=== PATIENT | female | born 1980 | race Caucasian/White ===

== ENCOUNTER → 2018-12-10 | Outpatient (REF) | payer BC, MEDICARE ==
[~2018-12-10] MED LIST: ACCUFLORA PO; ATIVAN0.5 MG PO; BACLOFEN10 MG PO; CLARITIN10 MG PO; COMBIVENT INH; DILAUDID2 MG PO; DULCOLAX10 MG RE; DURAGESIC75 MCG/H1 TOP; FENTANYL50 MCG/HR TOP; KEFLEX500 M1 PO; KEFLEX500 MG PO; LACTULOSE; LEVAQUIN500 MG PO; MUCINEX600 MG PO; NEURONTIN600 MG PO; NOVOLOG; NYSTATIN TOP; OXYCODONE HCL30 MG PO; PROTONIX40 MG PO; RESTORIL15 MG PO; SEASONALE PO; SENOKOT S1 TAB PO; SERTRALINE50 MG PO; XANAX0.25 MG PO; ZOFRAN ODT4 MG PO; [UNRECOGNIZED DRUG - CODE] PO; [UNRECOGNIZED DRUG - OTHER] PO; [UNRECOGNIZED DRUG - OTHER] SC
[2018-12-10 15:23] LABS: URINE BILIRUBIN - DIPSTICK NEGATIVE (NEGATIVE); URINE BLOOD DIPSTICK NEGATIVE (NEGATIVE); URINE COLOR YELLOW; URINE GLUCOSE - DIPSTICK NEGATIVE (NEGATIVE); URINE KETONE NEGATIVE (NEGATIVE); URINE LEUK ESTERASE NEGATIVE (Negative); URINE NITRITE - DIPSTICK NEGATIVE (Negative); URINE PH 5.5 (4.5-8.0); URINE PROTEIN - DIPSTICK NEGATIVE (NEG-TRACE); URINE UROBILINOGEN - DIPSTICK 0.2 E.U./dL (0.2)
[2018-12-10 15:25] LABS: URINE CLARITY CLEAR
== END | disposition home or self-care (01) | DRG 696 ==
LOC: LABSPEC 14:20
PROVIDERS: ATTEND Nurse Practitioner
DX: R31.9 Hematuria, unspecified (principal); R31.0 Gross hematuria; N30.20 Other chronic cystitis without hematuria

== ENCOUNTER 2019-03-26 19:52 | Emergency (ER) | payer BC, MEDICARE, MEDICAID ==
[~2019-03-26] VITALS: Ht 162.6 cm; Wt 82.0 kg
[2019-03-26 20:51] LABS: URINE BILIRUBIN - DIPSTICK NEGATIVE (NEGATIVE); URINE BLOOD DIPSTICK NEGATIVE (NEGATIVE); URINE COLOR YELLOW; URINE GLUCOSE - DIPSTICK NEGATIVE (NEGATIVE); URINE KETONE 15 mg/dL (NEGATIVE); URINE LEUK ESTERASE TRACE (NEGATIVE); URINE NITRITE - DIPSTICK NEGATIVE (Negative); URINE PH 5.5 (4.5-8.0); URINE PROTEIN - DIPSTICK NEGATIVE (NEG-TRACE); URINE UROBILINOGEN - DIPSTICK 0.2 E.U./dL (0.2)
[2019-03-26 21:15] VITALS: BP 109/66
[2019-03-26] MEDS ORDERED: DIFLUCAN100 M1 PO (21:18)
[2019-03-26] MEDS ORDERED: CEPHALEXIN500 M1 PO (21:18)
== END 2019-03-26 21:30 | disposition home or self-care (01) | DRG 758 ==
LOC: ED 19:52
PROVIDERS: Emergency Medicine
DX: B37.49 Other urogenital candidiasis (principal); G82.20 Paraplegia, unspecified; E11.40 Type 2 diabetes mellitus with diabetic neuropathy, unspecified; Z79.4 Long term (current) use of insulin

== ENCOUNTER 2019-03-31 18:58 | Emergency (ER) | payer BC, MEDICARE, MEDICAID ==
[~2019-03-31] VITALS: Ht 162.6 cm; Wt 110.0 kg
[~2019-03-31 18:58] MED LIST changes: +CEPHALEXIN500 M1 PO; +DIFLUCAN100 M1 PO
[2019-03-31] MEDS ORDERED: METFORMIN500 MG PO (19:12)
[2019-03-31] MEDS ORDERED: MULTIVITAMI1 PO (19:13)
[2019-03-31 20:40] VITALS: BP 112/74
== END 2019-03-31 20:40 | disposition home or self-care (01) | DRG 74 ==
LOC: ED 18:58
DX: G56.03 Carpal tunnel syndrome, bilateral upper limbs (principal); S00.81XA Abrasion of other part of head, initial encounter; G82.20 Paraplegia, unspecified; E11.40 Type 2 diabetes mellitus with diabetic neuropathy, unspecified; V00.811A Fall from moving wheelchair (powered), initial encounter; Z79.84 Long term (current) use of oral hypoglycemic drugs

== ENCOUNTER 2020-10-18 16:53 | Emergency (ER) | payer OTHER, MEDICARE, MEDICAID ==
[~2020-10-18] VITALS: Ht 162.6 cm; Wt 81.8 kg
[~2020-10-18 16:53] MED LIST changes: +METFORMIN500 MG PO; +MULTIVITAMI1 PO
[2020-10-18 17:49] LABS: URINE BLOOD DIPSTICK LARGE (NEGATIVE); URINE COLOR RED; URINE GLUCOSE - DIPSTICK NEGATIVE (NEGATIVE); URINE KETONE NEGATIVE (NEGATIVE); URINE PROTEIN - DIPSTICK 100 mg/dL (NEG-TRACE); URINE SPECIFIC GRAVITY 1.025; URINE UROBILINOGEN - DIPSTICK 0.2 E.U./dL (0.2)
[2020-10-18 17:50] LABS: URINE BACTERIA RARE hpf; URINE BILIRUBIN - DIPSTICK SMALL (NEGATIVE); URINE LEUK ESTERASE SMALL (NEGATIVE); URINE NITRITE - DIPSTICK POSITIVE (Negative); URINE RBC >100 RBC/hpf (0-5); URINE SQUAMOUS EPITHELIAL CELL FEW EPI/hpf (0-FEW)
[2020-10-18 18:08] VITALS: BP 115/75
[2020-10-18] MEDS ORDERED: NITROFURANTN100 MG PO (18:09)
== END 2020-10-18 18:16 | disposition home or self-care (01) | DRG 690 ==
LOC: ED 16:53
PROVIDERS: Family Medicine
DX: N39.0 Urinary tract infection, site not specified (principal); G82.20 Paraplegia, unspecified; E11.9 Type 2 diabetes mellitus without complications; Z98.1 Arthrodesis status

== ENCOUNTER 2021-06-04 10:28 | Emergency (ER) | payer OTHER, MEDICARE, MEDICAID ==
[~2021-06-04] VITALS: Ht 162.6 cm; Wt 81.8 kg
[~2021-06-04 10:28] MED LIST changes: +METFORMIN500 M2 PO; -METFORMIN500 MG PO; +NITROFURANTN100 MG PO
[2021-06-04 12:07] LABS: URINE BILIRUBIN - DIPSTICK NEGATIVE (NEGATIVE); URINE BLOOD DIPSTICK MODERATE (NEGATIVE); URINE COLOR YELLOW; URINE GLUCOSE - DIPSTICK NEGATIVE (NEGATIVE); URINE KETONE NEGATIVE (NEGATIVE); URINE LEUK ESTERASE TRACE (NEGATIVE); URINE PH 7.5 (4.5-8.0); URINE PROTEIN - DIPSTICK NEGATIVE (NEG-TRACE); URINE UROBILINOGEN - DIPSTICK 0.2 E.U./dL (0.2)
[2021-06-04 12:14] LABS: URINE NITRITE - DIPSTICK NEGATIVE (Negative)
[2021-06-04 12:15] LABS: URINE EPITHELIAL CELLS FEW EPI/hpf (0-FEW); URINE WBC 0-2 WBC/hpf (0-5)
[2021-06-04 13:00] VITALS: BP 108/70
== END 2021-06-04 13:00 | disposition home or self-care (01) | DRG 699 ==
LOC: ED 10:28
PROC: 0T2BX0Z Change Drainage Device in Bladder, External Approach (ICD-10-PCS; principal; 2021-06-04)
DX: T83.9XXA Unspecified complication of genitourinary prosthetic device, implant and graft, initial encounter (principal); G82.20 Paraplegia, unspecified; E11.9 Type 2 diabetes mellitus without complications; Y83.3 Surgical operation with formation of external stoma as the cause of abnormal reaction of the patient, or of later complication, without mention of misadventure at the time of the procedure; Z79.84 Long term (current) use of oral hypoglycemic drugs

== ENCOUNTER 2021-07-05 09:01 | Emergency (ER) | payer OTHER, MEDICARE, MEDICAID ==
[~2021-07-05] VITALS: Ht 162.6 cm; Wt 90.0 kg
[~2021-07-05 09:01] MED LIST changes: -METFORMIN500 M2 PO; +METFORMIN500 MG PO
[2021-07-05] MEDS ORDERED: TRULICITY0.75 MG/0. SC (10:11)
[2021-07-05] MEDS ORDERED: XANAX0.25 MG PO (10:12)
[2021-07-05 12:44] VITALS: BP 112/62
[2021-07-05] MEDS ORDERED: CEPHALEXIN500 M1 PO (13:01)
== END 2021-07-05 12:52 | disposition home or self-care (01) | DRG 605 ==
LOC: ED 09:01
PROC: 0HQMXZZ Repair Right Foot Skin, External Approach (ICD-10-PCS; principal; 2021-07-05)
DX: S91.211A Laceration without foreign body of right great toe with damage to nail, initial encounter (principal); S91.205A Unspecified open wound of left lesser toe(s) with damage to nail, initial encounter; G82.20 Paraplegia, unspecified; E11.9 Type 2 diabetes mellitus without complications; E66.9 Obesity, unspecified; W22.09XA Striking against other stationary object, initial encounter; Y93.89 Activity, other specified

== ENCOUNTER 2021-07-26 18:28 | Emergency (ER) | payer OTHER, MEDICARE, MEDICAID ==
[~2021-07-26] VITALS: Ht 162.6 cm; Wt 82.0 kg
[~2021-07-26 18:28] MED LIST changes: +METFORMIN500 M2 PO; -METFORMIN500 MG PO; +TRULICITY0.75 MG/0. SC
[2021-07-26 20:59] LABS: URINE BILIRUBIN - DIPSTICK NEGATIVE (NEGATIVE); URINE BLOOD DIPSTICK LARGE (NEGATIVE); URINE COLOR YELLOW; URINE GLUCOSE - DIPSTICK NEGATIVE (NEGATIVE); URINE KETONE TRACE mg/dL (NEGATIVE); URINE LEUK ESTERASE NEGATIVE (NEGATIVE); URINE PH 6.5 (4.5-8.0); URINE PROTEIN - DIPSTICK 30 mg/dL (NEG-TRACE); URINE SPECIFIC GRAVITY >=1.030; URINE UROBILINOGEN - DIPSTICK 0.2 E.U./dL (0.2)
[2021-07-26 21:02] LABS: URINE NITRITE - DIPSTICK NEGATIVE (Negative)
[2021-07-26 21:07] LABS: URINE RBC 25-50 RBC/hpf (0-5)
[2021-07-26 21:08] LABS: URINE BACTERIA FEW hpf
[2021-07-26 21:45] VITALS: BP 126/76
== END 2021-07-26 21:50 | disposition home or self-care (01) | DRG 699 ==
LOC: ED 18:28
PROC: 0T2BX0Z Change Drainage Device in Bladder, External Approach (ICD-10-PCS; principal; 2021-07-26)
DX: T83.030A Leakage of cystostomy catheter, initial encounter (principal); G82.20 Paraplegia, unspecified; E11.9 Type 2 diabetes mellitus without complications; Y83.3 Surgical operation with formation of external stoma as the cause of abnormal reaction of the patient, or of later complication, without mention of misadventure at the time of the procedure; Z79.84 Long term (current) use of oral hypoglycemic drugs

== ENCOUNTER 2022-05-02 14:02 | Emergency (ER) | payer OTHER, MEDICARE, MEDICAID ==
[~2022-05-02] VITALS: Ht 162.6 cm; Wt 81.6 kg
[2022-05-02 14:09] VITALS: BP 103/68
[2022-05-02 15:22] LABS: URINE BILIRUBIN - DIPSTICK NEGATIVE (NEGATIVE); URINE BLOOD DIPSTICK LARGE (NEGATIVE); URINE COLOR YELLOW; URINE GLUCOSE - DIPSTICK NEGATIVE (NEGATIVE); URINE KETONE NEGATIVE (NEGATIVE); URINE LEUK ESTERASE TRACE (NEGATIVE); URINE PROTEIN - DIPSTICK TRACE mg/dL (NEG-TRACE); URINE UROBILINOGEN - DIPSTICK 0.2 E.U./dL (0.2)
[2022-05-02 15:26] LABS: URINE NITRITE - DIPSTICK NEGATIVE (Negative)
[2022-05-02 15:28] LABS: URINE RBC 50-100 RBC/hpf (0-5); URINE SQUAMOUS EPITHELIAL CELL FEW EPI/hpf (0-FEW)
[2022-05-02] MEDS ORDERED: CIPROFLOXACIN250 MG PO (15:46)
[2022-05-02 15:56] VITALS: BP 103/68
== END 2022-05-02 15:56 | disposition home or self-care (01) | DRG 690 ==
LOC: ED 14:02
PROVIDERS: Nurse Practitioner
PROC: 0T2BX0Z Change Drainage Device in Bladder, External Approach (ICD-10-PCS; principal; 2022-05-02)
DX: N39.0 Urinary tract infection, site not specified (principal); G82.20 Paraplegia, unspecified; T14.8XXS Other injury of unspecified body region, sequela; E11.9 Type 2 diabetes mellitus without complications; F41.9 Anxiety disorder, unspecified; Z93.50 Unspecified cystostomy status; Z79.84 Long term (current) use of oral hypoglycemic drugs

== ENCOUNTER 2023-11-05 06:36 | Emergency (ER) | payer OTHER, MEDICARE, MEDICAID ==
[~2023-11-05] VITALS: Ht 162.6 cm; Wt 81.6 kg
[~2023-11-05 06:36] MED LIST changes: +CIPROFLOXACIN250 MG PO
[2023-11-05 07:49] LABS: URINE BILIRUBIN - DIPSTICK Negative (NEGATIVE); URINE BLOOD DIPSTICK Moderate (NEGATIVE); URINE GLUCOSE - DIPSTICK Negative (NEGATIVE); URINE KETONE Negative (NEGATIVE); URINE NITRITE - DIPSTICK Negative (Negative); URINE PH 6.5 (4.5-8.0); URINE PROTEIN - DIPSTICK Negative (NEG-TRACE); URINE UROBILINOGEN - DIPSTICK 0.2 E.U./dL (0.2)
[2023-11-05 07:54] LABS: URINE COLOR Yellow; URINE LEUK ESTERASE Small (NEGATIVE)
[2023-11-05 08:01] LABS: BASO% 0.7 % (0-3); EOS% 2.1 % (0-8); HEMATOCRIT 40.7 % (37.0-47.0); IMMATURE GRANULOCYTES 0.1 % (0.0-5.0); LYMPH% 24.7 % (15-41); MEAN CORPUSCULAR HGB 28.8 pG CALC (26.0-32.0); MEAN CORPUSCULAR HGB CONC 31.9 g/dL CAL (32.0-36.0); MONO% 10.8 % (2-13); NEUT# 5.58 thou/uL (2.00-7.15); NEUT% 61.6 % (42-76); RED BLOOD COUNT 4.52 mill/uL (4.20-5.60); RED CELL DISTRI WIDTH 13.4 % (11.5-15.5)
[2023-11-05 08:07] LABS: URINE RBC 0-2 RBC/hpf (0-5); URINE WBC 0-2 WBC/hpf (0-5)
[2023-11-05 08:18] LABS: ALBUMIN 4.1 g/dL (3.2-5.0); ALKALINE PHOSPHATASE 67 u/l (38-126); ANION GAP 12 (6-22 (CALC)); BILIRUBIN, TOTAL 0.3 mg/dL (0.02-1.3); BUN 10 mg/dL (7-17); BUN/CREATININE RATIO 24 (12-20 (CALC)); CARBON DIOXIDE 25 mmol/l (22-30); CHLORIDE 106 mmol/l (95-108); CREATININE 0.4 mg/dL (0.5-1.0); GFR FOR AFR.AMER. > 60 ML/MIN (>=60 (CALC)); GFR OTHER RACES > 60 ML/MIN (>=60 (CALC)); POTASSIUM 4.3 mmol/l (3.5-5.1); SGOT/AST 36 u/l (14-36); SODIUM 139 mmol/l (137-146); TOTAL PROTEIN 6.8 g/dL (6.3-8.2)
[2023-11-05 09:13] VITALS: BP 105/67
== END 2023-11-05 09:15 | disposition home or self-care (01) | DRG 951 ==
LOC: ED 06:36
PROVIDERS: Family Medicine
DX: Z03.89 Encounter for observation for other suspected diseases and conditions ruled out (principal); G82.20 Paraplegia, unspecified; E11.9 Type 2 diabetes mellitus without complications; Z93.51 Cutaneous-vesicostomy status; Z79.84 Long term (current) use of oral hypoglycemic drugs; Z79.85 Long-term (current) use of injectable non-insulin antidiabetic drugs; Z20.822 Contact with and (suspected) exposure to COVID-19

== ENCOUNTER 2024-06-28 20:15 | Observation (INO) | payer OTHER, MEDICARE, MEDICAID ==
[2024-06-28] VITALS (8 sets, daily range): BP systolic 68–103; BP diastolic 43–61
[~2024-06-28] VITALS: Ht 162.6 cm; Wt 94.0 kg
[2024-06-28 21:13] LABS: URINE BILIRUBIN - DIPSTICK Negative (NEGATIVE); URINE BLOOD DIPSTICK Moderate (NEGATIVE); URINE CLARITY Clear; URINE GLUCOSE - DIPSTICK Negative (NEGATIVE); URINE KETONE 40 mg/dL (NEGATIVE); URINE LEUK ESTERASE Trace (Negative); URINE NITRITE - DIPSTICK Negative (Negative); URINE PROTEIN - DIPSTICK Negative (NEG-TRACE); URINE UROBILINOGEN - DIPSTICK 0.2 E.U./dL (0.2)
[2024-06-28 21:15] LABS: URINE COLOR Yellow
[2024-06-28 21:20] LABS: URINE RBC 0-2 RBC/hpf (0-5)
[2024-06-28 21:57] LABS: BASO% 0.6 % (0-3); EOS% 1.9 % (0-8); HEMATOCRIT 43.9 % (37.0-47.0); IMMATURE GRANULOCYTES 0.1 % (0.0-5.0); MEAN CORPUSCULAR HGB 29.7 pG CALC (26.0-32.0); MEAN CORPUSCULAR HGB CONC 31.9 g/dL CAL (32.0-36.0); MONO% 8.6 % (2-13); NEUT# 3.62 thou/uL (2.00-7.15); NEUT% 42.8 % (42-76); RED BLOOD COUNT 4.72 mill/uL (4.20-5.60)
[2024-06-28 22:07] LABS: ALBUMIN 4.8 g/dL (3.2-5.0); BILIRUBIN, TOTAL 0.3 mg/dL (0.02-1.3); CREATININE 0.6 mg/dL (0.5-1.0); POTASSIUM 3.6 mmol/l (3.5-5.1); TOTAL PROTEIN 8.1 g/dL (6.3-8.2)
[2024-06-28] MEDS ORDERED: Meropenem 1 GM in SODIUM CHLORIDE 0.9% 100 ML IV ONE (22:20)
[2024-06-28] MEDS ORDERED: SODIUM CHLORIDE 0.9% 1,000 ML IV SCH (22:25)
[2024-06-28] MEDS ORDERED: SODIUM CHLORIDE 0.9% 1,000 ML IV ONE ×2 (22:25)
[2024-06-28] MEDS ORDERED: TRAMADOL HCL50 MG PO (23:30)
[2024-06-28] MEDS ORDERED: AMBIEN5 MG PO (23:31)
[2024-06-28] MEDS ORDERED: SODIUM CHLORIDE 0.9% 1,000 ML IV PRN (23:40)
[2024-06-28] MEDS ORDERED: ACETAMINOPHEN 325 MG/TAB PO PRN (23:40)
[2024-06-28] MEDS ORDERED: MAGNESIUM HYDROXIDE 30 ML UDC PO PRN (23:40)
[2024-06-29 00:01] VITALS: BP 84/56
[2024-06-29 00:17] VITALS: BP 107/65
[2024-06-29 01:18] VITALS: BP 96/56
[2024-06-29 04:35] VITALS: BP 98/53
[2024-06-29] MEDS ORDERED: traMADol HCL 50 MG/TAB PO PRN (07:50)
[2024-06-29] MEDS ORDERED: ALPRAZolam 0.25 MG PO PRN (09:00)
[2024-06-29] MEDS ORDERED: GABAPENTIN 300 MG/CAP PO SCH (09:00)
[2024-06-29] MEDS ORDERED: ERTAPENEM 1 GM in SODIUM CHLORIDE 0.9% 50 ML IV SCH (11:00)
[2024-06-29] MEDS ORDERED: ENOXAPARIN SODIUM 40 MG/0.4 ML SYR SC SCH ×2 (21:00)
[2024-06-29] MEDS ORDERED: Zaleplon 5 MG/CAP PO SCH (21:00)
== END 2024-06-29 12:11 | disposition home or self-care (01) | DRG 696 ==
LOC: ED 20:15 → ED-I 23:28 → ED 23:37 → MS2 23:38
PROVIDERS: Emergency Medicine; ADMIT Internal Medicine; ATTEND Internal Medicine
DX: R82.90 Unspecified abnormal findings in urine (principal); G82.20 Paraplegia, unspecified; I10 Essential (primary) hypertension; E11.9 Type 2 diabetes mellitus without complications; T14.8XXS Other injury of unspecified body region, sequela; Z98.1 Arthrodesis status; Z93.50 Unspecified cystostomy status; Z87.440 Personal history of urinary (tract) infections
CPT/HCPCS: G0378; J1335

== ENCOUNTER 2024-08-28 09:27 | Emergency (ER) | payer OTHER, MEDICARE, MEDICAID ==
[~2024-08-28] VITALS: Ht 162.6 cm; Wt 74.0 kg
[~2024-08-28 09:27] MED LIST changes: +AMBIEN5 MG PO; +TRAMADOL HCL50 MG PO
[2024-08-28 10:20] VITALS: BP 134/84
== END 2024-08-28 10:06 | disposition home or self-care (01) | DRG 607 ==
LOC: ED 09:27
DX: A63.0 Anogenital (venereal) warts (principal); G82.20 Paraplegia, unspecified; E11.9 Type 2 diabetes mellitus without complications; I10 Essential (primary) hypertension

== ENCOUNTER 2024-09-27 14:50 | Observation (INO) | payer OTHER, MEDICARE ==
[~2024-09-27] VITALS: Ht 162.6 cm; Wt 72.0 kg
--- NOTE | 2024-09-27 15:47 | NUR ---
PT RETURNED TO LOBBY.
[2024-09-27 16:09] LABS: URINE BILIRUBIN - DIPSTICK Negative (NEGATIVE); URINE BLOOD DIPSTICK Moderate (NEGATIVE); URINE GLUCOSE - DIPSTICK Negative (NEGATIVE); URINE KETONE Trace mg/dL (NEGATIVE); URINE LEUK ESTERASE Negative (NEGATIVE); URINE NITRITE - DIPSTICK Negative (Negative); URINE PH 5.5 (4.5-8.0); URINE PROTEIN - DIPSTICK 100 mg/dL (NEG-TRACE); URINE SPECIFIC GRAVITY >=1.030; URINE UROBILINOGEN - DIPSTICK 0.2 E.U./dL (0.2)
[2024-09-27 16:10] LABS: URINE COLOR Yellow
[2024-09-27 16:12] LABS: URINE BACTERIA MANY hpf; URINE RBC 25-50 RBC/hpf (0-5); URINE SQUAMOUS EPITHELIAL CELL MODERATE EPI/hpf (0-FEW); URINE WBC 0-2 WBC/hpf (0-5)
[2024-09-27 16:13] LABS: URINE CALCIUM OXALATE CRYSTALS FEW lpf
--- NOTE | 2024-09-27 17:00 | NUR ---
PT BROUGHT BACK TO ER ROOM 2
[2024-09-27] MEDS ORDERED: Meropenem 1 GM in SODIUM CHLORIDE 0.9% 100 ML IV ONE (17:20)
[2024-09-27 17:51] LABS: BASO% 0.5 % (0-3); EOS% 1.1 % (0-8); HEMATOCRIT 39.3 % (37.0-47.0); IMMATURE GRANULOCYTES 0.2 % (0.0-5.0); LYMPH% 20.6 % (15-41); MEAN CELL VOLUME 89.5 fL CALC (80.0-100.0); MEAN CORPUSCULAR HGB 29.6 pG CALC (26.0-32.0); MEAN CORPUSCULAR HGB CONC 33.1 g/dL CAL (32.0-36.0); MONO% 14.4 % (2-13); NEUT# 3.57 thou/uL (2.00-7.15); NEUT% 63.2 % (42-76); RED BLOOD COUNT 4.39 mill/uL (4.20-5.60); RED CELL DISTRI WIDTH 12.7 % (11.5-15.5)
[2024-09-27 18:05] LABS: ALBUMIN 4.2 g/dL (3.2-5.0); BILIRUBIN, TOTAL 0.4 mg/dL (0.02-1.3); CREATININE 0.4 mg/dL (0.5-1.0); TOTAL PROTEIN 7.2 g/dL (6.3-8.2)
[2024-09-27] MEDS ORDERED: Meropenem 1 GM in SODIUM CHLORIDE 0.9% 100 ML IV STA (18:14)
[2024-09-27] MEDS ORDERED: LACTATED RINGER'S 1,000 ML IV ONE ×2 (18:20)
--- NOTE | 2024-09-27 20:41 | NUR ---
PT REPORT GIVEN TO CINTHIA ELIZONDO ON MEDR FLOOR
[2024-09-27] MEDS ORDERED: LACTATED RINGER'S 1,000 ML IV PRN (21:00)
[2024-09-27] MEDS ORDERED: ACETAMINOPHEN 325 MG/TAB PO PRN (21:00)
[2024-09-27] MEDS ORDERED: Polyethylene Glycol 3350 17 GM/PKT PO PRN (21:00)
[2024-09-27] MEDS ORDERED: Zaleplon 5 MG/CAP PO SCH (21:00)
[2024-09-27] MEDS ORDERED: ENOXAPARIN SODIUM 40 MG/0.4 ML SYR SC SCH (21:00)
[2024-09-27] MEDS ORDERED: GABAPENTIN 300 MG/CAP PO SCH (21:00)
[2024-09-27] MEDS ORDERED: ALPRAZolam 0.25 MG PO PRN (21:00)
--- NOTE | 2024-09-27 21:45 | NUR ---
PT ARRIVED TO [facility] WITH PERSONAL WHEELCHAIR AND SIGNIFICANT OTHER. SIGNIFICANT OTHER HELP GET PT SETUP WITH PERSONAL AIRMATTRESS. PT HAS A SUPRAPUBIC CATHETER WHICH PT TAKES CARE OF. NURSE PROVIDED A NEW DRESSING. CALL LIGHT WITHIN REACH. PT STATED UNDERSTANDING ON HOW TO USE IT. SIGNIFICANT OTHER IS STAYING THE NIGHT. PLAN OF CARE REVEIW WITH PT.
--- NOTE | 2024-09-27 21:57 | NUR ---
PT TRANSPORTED TO [facility] ROOM 262 WITH TELE BOX #6
[2024-09-27] MEDS ORDERED: Meropenem 1 GM in SODIUM CHLORIDE 0.9% 100 ML IV SCH (22:00)
[2024-09-28 01:12] VITALS: BP 99/57
--- NOTE | 2024-09-28 02:31 | NUR ---
PT SLEEPING EASILY AROUSABLE SIGNIFICANT OTHER AT BEDSIDE. CALL LIGHT WITHIN REACH. PLAN OF CARE ONGOING.
[2024-09-28 04:20] VITALS: BP 91/48
[2024-09-28 04:36] LABS: BASO% 0.9 % (0-3); EOS% 1.1 % (0-8); HEMATOCRIT 34.6 % (37.0-47.0); HEMOGLOBIN 11.6 g/dl (12.0-16.0); LYMPH% 46.9 % (15-41); MEAN CELL VOLUME 90.1 fL CALC (80.0-100.0); MEAN CORPUSCULAR HGB 30.2 pG CALC (26.0-32.0); MEAN CORPUSCULAR HGB CONC 33.5 g/dL CAL (32.0-36.0); MONO% 18.5 % (2-13); NEUT# 1.48 thou/uL (2.00-7.15); NEUT% 32.6 % (42-76); RED BLOOD COUNT 3.84 mill/uL (4.20-5.60); RED CELL DISTRI WIDTH 12.8 % (11.5-15.5)
[2024-09-28 04:39] LABS: BILIRUBIN, TOTAL 0.3 mg/dL (0.02-1.3); CREATININE 0.4 mg/dL (0.5-1.0); MAGNESIUM 1.7 mg/dL (1.6-2.3); POTASSIUM 3.5 mmol/l (3.5-5.1)
[2024-09-28 04:40] LABS: TOTAL PROTEIN 5.5 g/dL (6.3-8.2)
--- NOTE | 2024-09-28 05:09 | NUR ---
PT SLEEPING NO DISTRESS NOTED. SIGNIFICANT OTHER AT BEDSIDE. CALL LIGHT WITHIN REACH. PLAN OF CARE ONGOING.
--- NOTE | 2024-09-28 07:30 | NUR ---
SHIFT CHANGE REPORT, PT AWAKE ALERT AND ORIENTED SITTING UP IN BED, DENIES PAIN, IVF INFUSING, TELE MONITOR IN PLACE, SUPRA-PUBIC CATHETER IN PLACE WITH PALE YELLOW URINE, CALL [place] IN REACH AND BED LOCKED IN LOWEST POSITION, SIGNIFICANT OTHER AT BEDSIDE.
[2024-09-28 07:45] VITALS: BP 84/47
--- NOTE | 2024-09-28 10:00 | NUR ---
PT REPORTS SHE WANTS TO GO HOME TODAY, ADVICED MD WILL ROUND AND DISCUSS TREATMENT PLANS WITH HER, SHE STATED UNDERSTANDING.
[2024-09-28] MEDS ORDERED: traMADol HCL 50 MG/TAB PO PRN (10:35)
[2024-09-28] MEDS ORDERED: DEXTROSE 250 ML IV PRN (10:50)
[2024-09-28] MEDS ORDERED: INSULIN LISPRO 100 UNITS/ML ML SC SCH (11:00)
[2024-09-28 11:48] VITALS: BP 102/63
[2024-09-28] MEDS ORDERED: Meropenem 1 GM in SODIUM CHLORIDE 0.9% 100 ML IV SCH (14:00)
--- NOTE | 2024-09-28 15:24 | NUR ---
MD ROUNDED AND DISCUSSED TREATMENT PLAN, PT STATED UNDERSTANDING BUT SOMEWHAT DISAPPOINTED FOR NOT GOING HOME TODAY SHE WAS ANTICIPATING. ALL NEEDS ADDRESSED, SIGNIFICANT OTHER IS OF GREAT ASSISTANCE TO PATIENT.
[2024-09-28 16:15] VITALS: BP 104/56
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
--- NOTE | 2024-09-29 | NUR ---
PT SITTING UP HIGH FOWLERS WATCHING TV AT THIS TIME. DENIES ANY N/V/P AT THIS TIME. VSS. NO S/S OF DISTRESS. S/O AT BEDSIDE. CALL LIGHT WITHIN REACH AND SAFETY PRECAUTIONS IN PLACE.
[2024-09-29 00:15] VITALS: BP 87/50
[2024-09-29 03:42] VITALS: BP 99/58
[2024-09-29 04:40] LABS: ALBUMIN 3.2 g/dL (3.2-5.0); BILIRUBIN, TOTAL 0.3 mg/dL (0.02-1.3); CREATININE 0.5 mg/dL (0.5-1.0); MAGNESIUM 1.9 mg/dL (1.6-2.3); TOTAL PROTEIN 5.8 g/dL (6.3-8.2)
[2024-09-29 04:47] LABS: BASO% 1.6 % (0-3); EOS% 2.2 % (0-8); HEMATOCRIT 36.2 % (37.0-47.0); HEMOGLOBIN 11.5 g/dl (12.0-16.0); IMMATURE GRANULOCYTES 0.3 % (0.0-5.0); LYMPH% 71.9 % (15-41); MEAN CELL VOLUME 92.3 fL CALC (80.0-100.0); MEAN CORPUSCULAR HGB 29.3 pG CALC (26.0-32.0); MEAN CORPUSCULAR HGB CONC 31.8 g/dL CAL (32.0-36.0); MONO% 13.1 % (2-13); NEUT# 0.4 thou/uL (2.00-7.15); NEUT% 10.9 % (42-76); RED BLOOD COUNT 3.92 mill/uL (4.20-5.60)
--- NOTE | 2024-09-29 05:27 | NUR ---
PT SITTING UP FOWLERS IN BED, RESTING COMFORTABLY BUT EASY TO AROUSE. SCHEDULED ABX ADMINSITERED PER EMAR. PT DENIES ANY N/V/P AT THIS TIME. S/O AT BEDSIDE. VSS. NO S/S OF DISTRESS. CALL LIGHT WITHIN REACH AND SAFETY PRECAUTIONS IN PLACE.
--- NOTE | 2024-09-29 07:40 | NUR ---
SHIFT CHANGE REPORT, PT AWAKE ALERT AND ORIENTED IN HIGH FOWLERS POSITION IN BED, NO C/O DISCOMFORT AT THIS TIME, TELE MONITOR IN PLACE AND BED LOCKED IN LOWEST POSITION. SPOUSE AT BEDSIDE
--- NOTE | 2024-09-29 07:48 | NUR ---
PT REFUSED ACCU CHECK @0605.
--- NOTE | 2024-09-29 10:25 | NUR ---
PT IS REFUSING TO HAVE A PICC LINE PLACED FOR OUT-PT IV ANTIBIOTICS DONE FOR HER BACTERIA, SHE STATES SHE HAS VERY BAD PTSD AND NOT ABLE TO TOLERATE THE PROCEDURE, NURSE EDUCATED HER ON PRE-MEDICATION FOR PROCEDURE; HOWEVER, SHE STILL REFUSED STATING SHE HAS HAD 7 DAYS ANTIBIOTIC TREATMENT VIA PERIPHERAL LINE BEFORE AND TOLERATED IT. MEDICAL STAFF AND PERFORMING ARTIST NOTIFIED.
[2024-09-29] MEDS ORDERED: ERTAPENEM1 G1 IV (10:55)
[2024-09-29] MEDS ORDERED: ERTAPENEM 1 GM in SODIUM CHLORIDE 0.9% 50 ML IV SCH (14:00)
--- NOTE | 2024-09-29 15:15 | NUR ---
Discharge instructions given. Patient verbalizes understanding of same. Discharged in stable condition via Wheelchair to Home with significant other. All belongings sent with pt.
== END 2024-09-29 15:15 | disposition home or self-care (01) | DRG 690 ==
LOC: ED 14:50 → ED-I 17:45 → ED 18:27 → MS2 18:28
PROVIDERS: Family Medicine; Nurse Practitioner Family; ADMIT Internal Medicine; ATTEND Internal Medicine
DX: N39.0 Urinary tract infection, site not specified (principal); B96.1 Klebsiella pneumoniae [K. pneumoniae] as the cause of diseases classified elsewhere; G82.20 Paraplegia, unspecified; Z16.12 Extended spectrum beta lactamase (ESBL) resistance; I10 Essential (primary) hypertension; E11.9 Type 2 diabetes mellitus without complications; G89.29 Other chronic pain; F41.9 Anxiety disorder, unspecified; T14.8XXS Other injury of unspecified body region, sequela; V89.2XXS Person injured in unspecified motor-vehicle accident, traffic, sequela; Z79.891 Long term (current) use of opiate analgesic; Z87.440 Personal history of urinary (tract) infections; Z93.50 Unspecified cystostomy status; Z99.3 Dependence on wheelchair
CPT/HCPCS: G0378; J1335; J1650